=== PATIENT | female | born 1955 | race Caucasian/White ===

== ENCOUNTER → 2017-08-11 | Outpatient (CLI) | payer OTHER ==
[~2017-08-11] MED LIST: ADVAIR 250/501 DISK IH; AZOR 10/20 M1 TABLET PO; AZOR 5/20 MG1 TABLET PO; BAYER CHEWABLE81 MG PO; FLONASE16 G1 BOTH NARES; LEVAQUIN500 MG PO; LITE COAT ASPI325 M1 PO; NASONEX17 GM BOTH NARES; PREDNISONE20 MG PO; PRINIVIL20 MG PO; PROAIR HFA8.5 GM IH; PROVENTIL,2.5 MG/3 M IH; SINGULAIR10 MG PO; SPIRIVA1 INHALATI IH; TOPROL XL25 MG PO; ZITHROMAX Z-PA250 MG PO; predniSONE PO
== END | disposition home or self-care (01) ==
LOC: RES 07-21 08:00
DX: Z02.71 Encounter for disability determination (principal); R06.02 Shortness of breath
CPT/HCPCS: 94060; 94760

== ENCOUNTER 2018-02-21 12:21 | Emergency (ER) | payer BC ==
[~2018-02-21] VITALS: Ht 160 cm; Wt 60.0 kg
[2018-02-21 13:03] LABS: HEMATOCRIT 48.6 % (36.0-46.0); HEMOGLOBIN 16.6 G/DL (11.9-15.5); MCH 31.6 PG (29.0-34.0); MCHC 34.2 G/DL (30.0-36.0); MCV 92.4 FL (83-99); PLATELET COUNT 304 K/uL (156-360); RBC DIS.WIDTH-SD 41.4 % (39-53); RED BLOOD COUNT 5.26 M/uL (3.80-5.20); WHITE BLOOD COUNT 10.4 K/uL (4.1-10.2)
[2018-02-21 13:12] LABS: CHLORIDE 104 mEq/L (99-109); SODIUM 141 mEq/L (136-147)
[2018-02-21 13:14] LABS: GLUCOSE 76 mg/dL (70-99)
[2018-02-21 13:18] LABS: CREATININE 0.7 mg/dL (0.6-1.3); GFR ESTIMATE (CALCULATED) > 59 mL/min/
[2018-02-21 13:19] LABS: UREA NITROGEN (BUN) 14 mg/dL (9-23)
[2018-02-21 13:26] LABS: TROP-I INTERPRETATION NEGATIVE; TROPONIN-I < 0.01 ng/mL (0.0-0.30)
[2018-02-21 16:34] LABS: APPEARANCE CLEAR ((CLEAR)); BILIRUBIN NEGATIVE; BLOOD NEGATIVE; COLOR STRAW ((YELLOW)); GLUCOSE (STRIP) NEGATIVE; KETONES NEGATIVE; LEUKOCYTES NEGATIVE; NITRITE NEGATIVE; PROTEIN (STRIP) NEGATIVE; SPECIFIC GRAVITY 1.044 (1.000-1.030); UCUL ADDED? NO; UROBILINOGEN 0.2 MG/DL (0.2-1.0)
[2018-02-21 17:23] VITALS: BP 140/79
== END 2018-02-21 17:24 | disposition home or self-care (01) ==
LOC: EME 12:21
PROVIDERS: Physician Assistant
DX: R00.2 Palpitations (principal); R07.9 Chest pain, unspecified; J44.9 Chronic obstructive pulmonary disease, unspecified; I10 Essential (primary) hypertension; Z87.891 Personal history of nicotine dependence; Z88.2 Allergy status to sulfonamides; Z88.0 Allergy status to penicillin
CPT/HCPCS: 71046; 71275; 80048; 81003; 84484; 85027; 93005; 94640; 99281; 99284